=== PATIENT | male | born 1980 | race Caucasian/White ===

== ENCOUNTER 2024-08-06 09:20 | Day surgery (SDC) | payer MEDICAID, SELFPAY ==
--- NOTE | 2024-08-05 06:31 | EKG_ITS ---
[facility] Test Date: 2024-08-05 Pat Name: JAZZMINE ROBIN Department: Room: - Gender: Male Supportability Engineer: DREW : 1980 Requested By: Vernon Enamorado Order Number: [id number] Reading MD: Vernon Enamorado Measurements Intervals [place] Rate: 63 P: 78 AK: 126 QRS: 79 QRSD: 104 T: 81 QT: 439 QTc: 452 Interpretive Statements SINUS RHYTHM Compared to ECG 11/09/2023 08:10:19 Sinus bradycardia no longer present /store/S0/[id number].pdf
[2024-08-05 11:28] VITALS: BMI 24.4
[2024-08-05 12:21] LABS: Basophils % (Auto) 1 % (0-2.5); Eosinophils # (Auto) 0.2 Thou/mm3 (0.0-0.5); Eosinophils % (Auto) 3 % (0-10); Hematocrit 36.9 % (41.0-53.0); Hemoglobin 12.5 g/dL (13.5-16.0); Immature Granulocytes % (Auto) 0 % (0-0); Immature Granulocytes Auto 0.02 Thou/mm3 (0.00-0.00); Lymphocytes # (Auto) 2.2 Thou/mm3 (1.0-4.8); Lymphocytes % (Auto) 41 % (10-50); Mean Corpuscular HGB Conc 33.9 g/dl (31.0-37.0); Mean Corpuscular Hemoglobin 28.2 pg (25.0-35.0); Mean Corpuscular Volume 83 fL (80-100); Monocytes # (Auto) 0.5 Thou/mm3 (0.0-0.8); Monocytes % (Auto) 9 % (0-12); Neutrophils # (Auto) 2.6 Thou/mm3 (1.8-7.7); Neutrophils % (Auto) 46 % (37-80); Nucleated Red Blood Cell % 0 /100 WBC (0); Platelet Count 218 Thou/mm3 (140-440); RDW Standard Deviation 41.9 fL (35.1-43.9); Red Blood Count 4.43 Miln/mm3 (4.50-5.90); White Blood Count 5.5 Thou/mm3 (3.8-10.6)
[2024-08-05 12:28] LABS: INR 1.1 (0.9-1.3); Partial Thromboplastin Time 27.6 Seconds (22.0-36.0); Prothrombin Time 11.5 Seconds (9.0-12.2)
[2024-08-05 12:31] LABS: Alanine Aminotransferase 33 U/L (10-49); Albumin, Serum 4.4 gm/dL (3.5-5.0); Albumin/Globulin Ratio 1.8 (1.2-2.2); Alkaline Phosphatase 73 U/L (46-116); Anion Gap 7 (7-16); BUN/Creatinine Ratio 19 Ratio (12-20); Bilirubin,Total 0.3 mg/dL (0.3-1.2); Blood Urea Nitrogen 25 mg/dL (9-23); Calcium 9.6 mg/dL (8.3-10.6); Calcium (Corrected) 9.6 mg/dL (8.5-10.1); Carbon Dioxide 29.9 mMol/L (20.0-31.0); Chloride 103 mMol/L (98-107); Creatinine (Component) 1.3 mg/dL (0.6-1.3); Estimated Creatinine Clearance 70.9 mL/min (>60); Globulin 2.5 gm/dL (2.3-3.5); Glucose 75 mg/dL (74-106); Osmolality,Calculated 282 (275-295); Potassium 4.5 mMol/L (3.4-5.1); Sodium 140 mMol/L (136-145); Total Protein 6.9 gm/dL (5.7-8.2); eGFR > 60 See Note
[2024-08-06] VITALS (7 sets, daily range): BP systolic 120–133; BP diastolic 76–91; PULSE 60–71; RESP 12–16; TEMP 36.2–36.5; O2SAT 97–100; BMI 23.1
--- NOTE | 2024-08-06 11:35 | PD.SUROPNT ---
Date of Procedure 08/06/24 Pre Op Diagnosis Right inguinal hernia Post Op Diagnosis Indirect right inguinal hernia Procedure Right inguinal hernia repair with mesh Findings Patient was found to have indirect left inguinal hernia defect Procedure Description Patient brought into the operating room in supine position. After administration of general endotracheal anesthesia, patient's right groin was shaved, prepped and draped in standard surgical manner. The right inguinal crease was anesthetized with half percent Marcaine. An approximately 5 cm incision was made and dissection was carried to subcutaneous tissue. The Tomi's fascia was divided and the external oblique aponeurosis was opened towards the external ring. The hernia sac and the spermatic cord structures were from the posterior aspect of the external oblique aponeurosis at the level of pubic tubercle. The hernia sac was then meticulously dissected off the spermatic cord structures at the level of internal ring. Patient was noted to have indirect hernia sac. The hernia sac was then ligated at the level of internal ring. The floor of inguinal canal was then reconstructed with ultra Pro proceed mesh. The mesh was secured with running 2-0 Prolene suture. The mesh secured medially to the pubic tubercle, superiorly into the conjoin tendon, inferiorly and to the shelving edge of inguinal ligament, the mesh was placed around the cord structures and tacked under the external oblique aponeurosis laterally. The area was copiously and thoroughly washed and irrigated, all the fluids were suctioned and the suction fluid returned clear. Hemostasis was adequate and satisfactory. External oblique aponeurosis was closed with running 2-0 Vicryl suture, and Tomi's fascia was closed with interrupted suture using 3-0 Vicryl. The incision was closed with 4-0 Monocryl in subcutaneous fashion. Instruments, needles and sponge counts were reported to be correct ?2. Patient tolerated the procedure well. He was extubated, breathing spontaneously and without difficulty and was transferred to postanesthesia care in stable condition. Anesthesia GETA and local Pathology / specimen Other (Hernia sac) Estimated Blood Loss 10 Condition Stable Disposition PACU Surgeon Vernon Enamorado MD Surgical Staff Operation Date: 08/06/24 11:30 Case Staff INDUSTRIAL ENGINEERING ANALYST: Jessica Herr RN First Assistant: Linda Krishnan
--- NOTE | 2024-08-06 11:45 | SUR.PHASEI ---
pt received from OR in recovery bay 6. pt obtunded, breathing unlabored on oxymask 4l. v/s stable. pt dressing to right lower abd cdi. report received from William RAMOS and Dameno RAMACHANDRAN.
--- NOTE | 2024-08-06 12:48 | SUR.PHASEII ---
pt awake and alert, breathing unlabored on room air. v/s stable. pt dressing to right lower abd cdi, abd binder in place. pt able to ambulate to wheelchair with steady gait. d/c instructions given with mother Tere in room all questions answered. pt d/c via wheelchair with all belongings.
== END 2024-08-06 12:48 | disposition home or self-care (01) ==
PROVIDERS: Anesthesiology; PCP Family Medicine; Referring Provider Surgery; Visit Provider Surgery
PROC: (CPT 49505; principal; 2024-08-06 11:15)
DX: K40.90 Unilateral inguinal hernia, without obstruction or gangrene, not specified as recurrent (principal); Z01.810 Encounter for preprocedural cardiovascular examination
CPT/HCPCS: 49505; 36415; 80048; 80053; 85025; 85610; 85730; 93005; A4217; A4649; C1781; J1100; J1885; J2250; J2405; J2704; J3010; J3490

== ENCOUNTER 2025-02-18 23:15 | Emergency (ER) | payer MEDICAID, SELFPAY ==
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
--- NOTE | 2025-02-18 23:48 | PC.NURSE ---
PT TOLD ME THAT HE IS LEAVING.
--- NOTE | 2025-02-18 23:55 | PD.EDADDENDU ---
Emergency Room Addendum Addendum Narrative: When I looked for the patient to start my evaluation, I was told the patient eloped. Alfonso Flores MD
== END 2025-02-18 23:59 | disposition left against medical advice (07) ==
LOC: SERX 02-19 00:05
PROVIDERS: Emergency Provider Emergency Medicine
DX: Z53.21 Procedure and treatment not carried out due to patient leaving prior to being seen by health care provider (principal)
CPT/HCPCS: 99281